=== PATIENT | male | born 1975 ===

== ENCOUNTER 2025-07-12 11:27 | Outpatient (RCR) | payer OTHER, SELFPAY ==
[2025-07-12 09:49] LABS: Glucose - Point of Care 103 mg/dl (70-99)
[2025-07-12 10:44] LABS: Glucose - Point of Care 105 mg/dl (70-99)
== END 2025-07-12 23:59 | disposition home or self-care (01) ==
LOC: CRHB 11:27
PROVIDERS: ATTENDING PHYSICIAN Internal Medicine Interventional Cardiology
DX: I25.2 Old myocardial infarction (principal); Z95.5 Presence of coronary angioplasty implant and graft
CPT/HCPCS: 82962; 93798

== ENCOUNTER 2025-08-04 17:35 | Outpatient (RCR) | payer OTHER, SELFPAY ==
[2025-07-21 17:50] LABS: Glucose - Point of Care 186 mg/dl (70-99)
[2025-07-21 18:34] LABS: Glucose - Point of Care 106 mg/dl (70-99)
[2025-07-24 17:33] LABS: Glucose - Point of Care 134 mg/dl (70-99)
[2025-07-24 18:28] LABS: Glucose - Point of Care 114 mg/dl (70-99)
[2025-07-28 17:28] LABS: Glucose - Point of Care 116 mg/dl (70-99)
[2025-07-28 18:26] LABS: Glucose - Point of Care 115 mg/dl (70-99)
[2025-07-31 17:36] LABS: Glucose - Point of Care 98 mg/dl (70-99)
[2025-07-31 18:31] LABS: Glucose - Point of Care 106 mg/dl (70-99)
== END 2025-08-04 23:59 | disposition home or self-care (01) ==
LOC: CRHB 17:35
PROVIDERS: ATTENDING PHYSICIAN Internal Medicine Interventional Cardiology
DX: I25.2 Old myocardial infarction (principal); Z95.5 Presence of coronary angioplasty implant and graft
CPT/HCPCS: 82962; 93797; 93798

== ENCOUNTER 2025-09-08 13:00 | Outpatient (RCR) | payer OTHER, SELFPAY | END 2025-09-08 16:53 | disposition home or self-care (01) | LOC: CRHB 13:00 | PROVIDERS: ATTENDING PHYSICIAN Internal Medicine Interventional Cardiology; FAMILY PHYSICIAN Physician Assistant Medical | DX: I25.10 Atherosclerotic heart disease of native coronary artery without angina pectoris (principal); I25.2 Old myocardial infarction (principal); Z95.5 Presence of coronary angioplasty implant and graft | CPT/HCPCS: 93797; 93798 ==